=== PATIENT | female | born 1975 | race Two or more races ===

== ENCOUNTER 2019-03-02 07:30 | Day surgery (SDC) | payer OTHER | END 2019-03-02 16:20 | disposition home or self-care (01) | LOC: AMB-ENDOS 07:30 | DX: K64.1 Second degree hemorrhoids (principal); Z12.11 Encounter for screening for malignant neoplasm of colon ==

== ENCOUNTER 2025-05-27 06:00 | Day surgery (SDC) | payer OTHER ==
[2025-05-22 08:37] LABS: BASO % 1.0 % (0.1-1.2); EOS # 0.08 (0.04-0.54); EOS % 2.0 % (0.7-7.0); LYMPH # 1.50 (1.18-3.74); LYMPH % 36.9 % (19.3-53.1); MEAN PLATELET VOLUME 10.00 fl (9.4-12.4); MONO # 0.37 (0.24-0.82); MONO % 9.1 % (4.7-12.5); NEUT # 2.08 (1.56-6.13); NEUT % 51.0 % (34.0-71.1); RED CELL DISTRIBUTION WIDTH 13.5 % (11.6-14.4)
[2025-05-22 08:40] VITALS: BP 114/78
[2025-05-22 09:06] LABS: ALT/SGPT 127.0 U/L (12-78); AST/SGOT 72.0 U/L (15-37); BILIRUBIN TOTAL 0.63 mg/dL (0.3-1.2); BUN CREA RATIO 13.0 (7.0-25.0); CREATININE SERUM 0.77 mg/dL (0.55-1.02); GFR 79.03; GLOBULINA 3.7 G/DL (2.4-3.5); GLUCOSE FASTING 101.0 mg/dL (65-100); OSMOLALITY SERUM 286.0 MOSM/KG (275-295)
[2025-05-22 09:13] LABS: INR 1.03
[2025-05-22 11:34] LABS: URINE APPEARANCE Clear; URINE BILIRRUBIN Negative (NEGATIVE); URINE BLOOD Negative; URINE COLOR Yellow; URINE GLUCOSE Negative (NEGATIVE); URINE KETONE 15 (NEGATIVE); URINE LEUKOCYTE Small; URINE NITRATE Negative; URINE PROTEIN Negative (NEGATIVE); URINE UROBILINOGEN 0.2 E.U./dl
[2025-05-22 11:40] LABS: URINE EPITHELIAL CELLS 10.4 uL (0.0-38.8); URINE RBC 10.2 uL (0.0-20.8); URINE WBC 49.3 uL (0.0-23.2)
[2025-05-22 12:12] LABS: URINE BACTERIA > 9821.5 uL (0.0-1933); URINE CAST 0.00 uL (0.0-1.40)
[~2025-05-27] VITALS: Ht 157.5 cm; Wt 142.9 kg
[~2025-05-27 06:00] MED LIST: TOPROL XL25 M1 PO
[2025-05-27] MEDS ORDERED: CHLORHEXIDINE GLUCONATE 120 ML BOTTLE TOP ONE (07:45)
[2025-05-27] MEDS ORDERED: POVIDONE-IODINE 118 ML BOTT TOP ONE (07:45)
[2025-05-27] MEDS ORDERED: KETOROLAC TROMETHAMINE 60 MG VIAL IM ONE (08:15)
[2025-05-27] MEDS ORDERED: ONDANSETRON HCL 2 MG/ML VIAL IV ONE (08:15)
== END 2025-05-27 11:30 | disposition home or self-care (01) ==
LOC: CIR.AMB 06:00
PROVIDERS: ATTEND Obstetrics & Gynecology
DX: N84.0 Polyp of corpus uteri (principal); N95.0 Postmenopausal bleeding; Z88.2 Allergy status to sulfonamides

== ENCOUNTER 2025-06-17 07:23 | Inpatient (IN) | payer OTHER ==
[2025-06-12 09:00] VITALS: BP 124/86
[2025-06-12 09:07] LABS: BASO % 0.8 % (0.1-1.2); EOS # 0.10 (0.04-0.54); EOS % 2.1 % (0.7-7.0); LYMPH # 1.38 (1.18-3.74); LYMPH % 28.8 % (19.3-53.1); MEAN PLATELET VOLUME 10.00 fl (9.4-12.4); MONO # 0.40 (0.24-0.82); MONO % 8.4 % (4.7-12.5); NEUT # 2.86 (1.56-6.13); NEUT % 59.7 % (34.0-71.1); RED CELL DISTRIBUTION WIDTH 13.6 % (11.6-14.4)
[2025-06-12 09:28] LABS: URINE APPEARANCE Clear; URINE BILIRRUBIN Negative (NEGATIVE); URINE BLOOD Negative; URINE COLOR Yellow; URINE GLUCOSE Negative (NEGATIVE); URINE KETONE Negative (NEGATIVE); URINE LEUKOCYTE Negative; URINE NITRATE Negative; URINE PROTEIN Negative (NEGATIVE); URINE UROBILINOGEN 0.2 E.U./dl
[2025-06-12 09:30] LABS: URINE BACTERIA 47.9 uL (0.0-1933); URINE EPITHELIAL CELLS 5.0 uL (0.0-38.8); URINE RBC 4.6 uL (0.0-20.8); URINE WBC 2.7 uL (0.0-23.2)
[2025-06-12 09:40] LABS: URINE CAST 0.00 uL (0.0-1.40)
[2025-06-12 09:46] LABS: INR 1.0
[2025-06-12 10:20] LABS: ALT/SGPT 134.0 U/L (12-78); AST/SGOT 82.0 U/L (15-37); BILIRUBIN TOTAL 0.69 mg/dL (0.3-1.2); BUN CREA RATIO 14.0 (7.0-25.0); CREATININE SERUM 0.69 mg/dL (0.55-1.02); GFR 89.69; GLOBULINA 3.3 G/DL (2.4-3.5); GLUCOSE FASTING 90.0 mg/dL (65-100); OSMOLALITY SERUM 280.0 MOSM/KG (275-295)
[~2025-06-17] VITALS: Ht 99.1 cm; Wt 142.9 kg
[2025-06-17] MEDS ORDERED: POVIDONE-IODINE 118 ML BOTT TOP ONE (10:15)
[2025-06-17] MEDS ORDERED: CEFOXITIN SODIUM 2,000 MG VIAL IV ONE (10:15)
[2025-06-17] MEDS ORDERED: PROMETHAZINE HCL 25 MG/ML AMPUL IV SCH (12:38)
[2025-06-17] MEDS ORDERED: MORPHINE SULFATE 4 MG/ML VIAL IV SCH (12:41)
[2025-06-17] MEDS ORDERED: MORPHINE SULFATE 4 MG/ML VIAL IV ONE (13:25)
[2025-06-17 15:55] LABS: BASO % 0.2 % (0.1-1.2); EOS # 0.00 (0.04-0.54); EOS % 0.0 % (0.7-7.0); LYMPH # 0.87 (1.18-3.74); LYMPH % 7.6 % (19.3-53.1); MEAN PLATELET VOLUME 9.30 fl (9.4-12.4); MONO # 0.68 (0.24-0.82); MONO % 6.0 % (4.7-12.5); NEUT # 9.80 (1.56-6.13); NEUT % 85.9 % (34.0-71.1); RED CELL DISTRIBUTION WIDTH 14.0 % (11.6-14.4)
[2025-06-17 18:13] VITALS: BP 150/70; O2SAT 98
[2025-06-18] VITALS: BP 157/75
[2025-06-18] MEDS ORDERED: SIMETHICONE 125 MG CAPSULE PO SCH (05:00)
[2025-06-18] MEDS ORDERED: GABAPENTIN 600 MG TABLET PO SCH (05:00)
[2025-06-18 06:00] VITALS: BP 156/72
[2025-06-18] MEDS ORDERED: CEFOXITIN SODIUM 2,000 MG VIAL IV STA (06:37)
[2025-06-18 08:03] VITALS: BP 118/74
[2025-06-18] MEDS ORDERED: METOPROLOL SUCCINATE 25 MG TAB.SR.24H PO SCH (09:00)
[2025-06-18] MEDS ORDERED: AMOXICILLIN/POTASSIUM CLAV 875-125 TABLET PO SCH (09:00)
[2025-06-18 16:14] VITALS: BP 140/70
[2025-06-18 20:49] VITALS: BP 150/70
[2025-06-19 01:06] VITALS: BP 113/68
[2025-06-19] MEDS ORDERED: TOPROL XL25 M1 PO (06:50)
[2025-06-19] MEDS ORDERED: AMOX-CLAV 875-1 EACH PO (06:50)
[2025-06-19] MEDS ORDERED: NEURONTIN600 MG PO (06:50)
[2025-06-19] MEDS ORDERED: IBUPROFEN800 MG PO (06:51)
[2025-06-19] MEDS ORDERED: SIMETHICONE125 M1 PO (06:51)
[2025-06-19 08:10] VITALS: BP 124/74
== END 2025-06-19 10:06 | disposition home or self-care (01) | DRG 743 ==
LOC: CIR.AMB 07:23 → OB/GYN 14:08
PROVIDERS: ADMIT Obstetrics & Gynecology; ATTEND Obstetrics & Gynecology
PROC: 0UT7FZZ Resection of Bilateral Fallopian Tubes, Via Natural or Artificial Opening With Percutaneous Endoscopic Assistance (ICD-10-PCS; 2025-06-17)
PROC: 0UT2FZZ Resection of Bilateral Ovaries, Via Natural or Artificial Opening With Percutaneous Endoscopic Assistance (ICD-10-PCS; 2025-06-17)
PROC: 0UT9FZZ Resection of Uterus, Via Natural or Artificial Opening With Percutaneous Endoscopic Assistance (ICD-10-PCS; principal; 2025-06-17 14:00)
DX: D25.1 Intramural leiomyoma of uterus (principal); D25.0 Submucous leiomyoma of uterus; N84.0 Polyp of corpus uteri

== ENCOUNTER 2025-06-27 11:39 | Emergency (ER) | payer OTHER ==
[~2025-06-27] VITALS: Ht 157.5 cm; Wt 140.6 kg
[~2025-06-27 11:39] MED LIST changes: +AMOX-CLAV 875-1 EACH PO; +IBUPROFEN800 MG PO; +NEURONTIN600 MG PO; +SIMETHICONE125 M1 PO
[2025-06-27] MEDS ORDERED: FAMOTIDINE/PF 20 MG in 0.9 % SODIUM CHLORIDE 8 ML IV PUSH ONE (13:30)
[2025-06-27] MEDS ORDERED: ACETAMINOPHEN 500 MG GEL..CAP PO ONE ×2 (13:30→14:00)
[2025-06-27] MEDS ORDERED: RINGERS SOLUTION,LACTATED 1,000 ML IV SCH (13:30)
[2025-06-27] MEDS ORDERED: FAMOTIDINE/PF 20 MG/2 ML VIAL ONE (14:00)
[2025-06-27 14:28] LABS: URINE APPEARANCE Clear; URINE BILIRRUBIN Negative (NEGATIVE); URINE BLOOD Moderate; URINE COLOR Yellow; URINE GLUCOSE Negative (NEGATIVE); URINE KETONE Negative (NEGATIVE); URINE LEUKOCYTE Small; URINE NITRATE Negative; URINE PROTEIN 30 (NEGATIVE); URINE UROBILINOGEN 0.2 E.U./dl
[2025-06-27 14:29] LABS: URINE BACTERIA 266.3 uL (0.0-1933); URINE EPITHELIAL CELLS 13.6 uL (0.0-38.8); URINE RBC 246.6 uL (0.0-20.8); URINE WBC 266.2 uL (0.0-23.2)
[2025-06-27 14:31] LABS: URINE CAST 0.87 uL (0.0-1.40)
[2025-06-27 14:38] LABS: BASO % 0.5 % (0.1-1.2); EOS # 0.38 (0.04-0.54); EOS % 4.7 % (0.7-7.0); LYMPH # 1.66 (1.18-3.74); LYMPH % 20.7 % (19.3-53.1); MEAN PLATELET VOLUME 9.20 fl (9.4-12.4); MONO # 0.61 (0.24-0.82); MONO % 7.6 % (4.7-12.5); NEUT # 5.31 (1.56-6.13); NEUT % 66.3 % (34.0-71.1); RED CELL DISTRIBUTION WIDTH 13.3 % (11.6-14.4)
[2025-06-27 14:42] LABS: INR 1.08
[2025-06-27 14:49] LABS: ALT/SGPT 103.0 U/L (12-78); AST/SGOT 84.0 U/L (15-37); BILIRUBIN TOTAL 0.42 mg/dL (0.3-1.2); BUN CREA RATIO 12.0 (7.0-25.0); CREATININE SERUM 0.93 mg/dL (0.55-1.02); GFR 63.56; GLOBULINA 4.5 G/DL (2.4-3.5); GLUCOSE FASTING 104.0 mg/dL (65-100); OSMOLALITY SERUM 287.0 MOSM/KG (275-295)
[2025-06-27] MEDS ORDERED: CEFTRIAXONE SODIUM 1,000 MG VIAL ONE (17:10)
[2025-06-27] MEDS ORDERED: CEFTRIAXONE SODIUM 2,000 MG VIAL IV ONE (17:15)
== END 2025-06-27 17:33 | disposition home or self-care (01) ==
LOC: ER 11:40
PROVIDERS: General Practice
DX: R10.84 Generalized abdominal pain (principal); K57.30 Diverticulosis of large intestine without perforation or abscess without bleeding; Z90.722 Acquired absence of ovaries, bilateral; I10 Essential (primary) hypertension; Z88.2 Allergy status to sulfonamides

== ENCOUNTER 2025-08-14 16:44 | Inpatient (IN) | payer OTHER ==
[~2025-08-14] VITALS: Ht 61 cm; Wt 133.8 kg
[2025-08-14 17:30] VITALS: BP 113/77
[2025-08-14] MEDS ORDERED: RINGERS SOLUTION,LACTATED 1,000 ML IV SCH (18:30)
[2025-08-14] MEDS ORDERED: FLUCONAZOLE IN NACL,ISO-OSM 200 MG/100 ML PIGGYBAG IV SCH (19:00)
[2025-08-14] MEDS ORDERED: CLOTRIMAZOLE/BETAMETHASONE DIP 15 GM TUBE TOP SCH (19:00)
[2025-08-14 19:40] LABS: URINE APPEARANCE Cloudy; URINE BILIRRUBIN Negative (NEGATIVE); URINE BLOOD Moderate; URINE COLOR Yellow; URINE GLUCOSE Negative (NEGATIVE); URINE KETONE Trace (NEGATIVE); URINE LEUKOCYTE Large; URINE NITRATE Positive; URINE PROTEIN 30 (NEGATIVE); URINE UROBILINOGEN 0.2 E.U./dl
[2025-08-14 19:44] LABS: URINE CAST 0.43 uL (0.0-1.40); URINE EPITHELIAL CELLS 1.3 uL (0.0-38.8); URINE RBC 97.8 uL (0.0-20.8); URINE WBC 721.7 uL (0.0-23.2)
[2025-08-14 20:04] LABS: INR 0.99
[2025-08-14 20:07] LABS: ALT/SGPT 81.0 U/L (12-78); AST/SGOT 55.0 U/L (15-37); BILIRUBIN TOTAL 0.32 mg/dL (0.3-1.2); BUN CREA RATIO 15.0 (7.0-25.0); CREATININE SERUM 0.91 mg/dL (0.55-1.02); GFR 65.17; GLOBULINA 3.6 G/DL (2.4-3.5); GLUCOSE FASTING 103.0 mg/dL (65-100); OSMOLALITY SERUM 288.0 MOSM/KG (275-295)
[2025-08-14] MEDS ORDERED: AZTREONAM 2,000 MG VIAL IV SCH (21:00)
[2025-08-14] MEDS ORDERED: CEFTAZIDIME/AVIBACTAM 2.5 GM VIAL IV SCH (21:00)
[2025-08-15 01:42] VITALS: BP 123/78
[2025-08-15] MEDS ORDERED: AZTREONAM 2,000 MG VIAL IV SCH ×2 (04:00→12:00)
[2025-08-15 09:00] VITALS: BP 143/80
[2025-08-15] MEDS ORDERED: METOPROLOL SUCCINATE 25 MG TAB.SR.24H PO SCH (09:00)
[2025-08-15] MEDS ORDERED: FAMOTIDINE/PF 20 MG/2 ML VIAL IV SCH (09:00)
[2025-08-15 11:53] LABS: BASO % 0.6 % (0.1-1.2); EOS # 0.18 (0.04-0.54); EOS % 3.6 % (0.7-7.0); LYMPH # 1.38 (1.18-3.74); LYMPH % 27.3 % (19.3-53.1); MEAN PLATELET VOLUME 9.50 fl (9.4-12.4); MONO # 0.48 (0.24-0.82); MONO % 9.5 % (4.7-12.5); NEUT # 2.97 (1.56-6.13); NEUT % 58.8 % (34.0-71.1); RED CELL DISTRIBUTION WIDTH 14.1 % (11.6-14.4)
[2025-08-15] MEDS ORDERED: MEROPENEM/VABORBACTAM 2 GM VIAL IV SCH (13:00)
[2025-08-15 16:12] VITALS: BP 112/72
[2025-08-15] MEDS ORDERED: LACTOBACILLUS ACIDOPHILUS 1 CAP CAP PO SCH (17:00)
[2025-08-16] VITALS: BP 150/70
[2025-08-16 08:00] VITALS: BP 122/73
[2025-08-16] MEDS ORDERED: CHLORHEXIDINE GLUCONATE 120 ML BOTTLE TOP SCH (09:00)
[2025-08-16] MEDS ORDERED: AZTREONAM/AVIBACTAM SODIUM 2 GM VIAL IV STA (09:36)
[2025-08-16] MEDS ORDERED: FLUCONAZOLE 200 MG TABLET PO SCH (17:00)
[2025-08-16 17:35] VITALS: BP 137/76
[2025-08-16] MEDS ORDERED: AZTREONAM/AVIBACTAM SODIUM 2 GM VIAL IV SCH (18:00)
[2025-08-17 00:28] VITALS: BP 130/77
[2025-08-17 09:13] VITALS: BP 132/77
[2025-08-17 17:00] VITALS: BP 144/77
[2025-08-18] VITALS: BP 132/75
[2025-08-18 09:10] VITALS: BP 128/80
[2025-08-18 16:00] VITALS: BP 114/69
[2025-08-19 01:09] VITALS: BP 114/74
[2025-08-19 08:30] VITALS: BP 136/85
[2025-08-19] MEDS ORDERED: AZTREONAM/AVIBACTAM SODIUM 2 GM VIAL IV SCH (12:00)
[2025-08-19 13:46] LABS: URINE APPEARANCE Clear; URINE BILIRRUBIN Negative (NEGATIVE); URINE BLOOD Moderate; URINE COLOR Yellow; URINE GLUCOSE Negative (NEGATIVE); URINE KETONE Negative (NEGATIVE); URINE LEUKOCYTE Large; URINE NITRATE Negative; URINE PROTEIN Negative (NEGATIVE); URINE UROBILINOGEN 0.2 E.U./dl
[2025-08-19 13:54] LABS: URINE BACTERIA 183.5 uL (0.0-1933); URINE CAST 0.00 uL (0.0-1.40); URINE EPITHELIAL CELLS 7.0 uL (0.0-38.8); URINE RBC 14.8 uL (0.0-20.8); URINE WBC 47.2 uL (0.0-23.2)
[2025-08-19 16:28] VITALS: BP 144/68
[2025-08-20 00:09] VITALS: BP 133/77
[2025-08-20 07:32] VITALS: BP 118/77
[2025-08-20] MEDS ORDERED: PATIENTS OWN MEDICATION (MEDICAMENTO EN PISO NEVERA) IV SCH (12:00)
[2025-08-20 22:16] VITALS: BP 116/73
[2025-08-21 01:26] VITALS: BP 110/70
[2025-08-21 08:00] VITALS: BP 100/61
[2025-08-21 16:41] VITALS: BP 117/72
[2025-08-22] VITALS: BP 117/73
[2025-08-22 08:00] VITALS: BP 113/77
[2025-08-22] MEDS ORDERED: CLOTRIMAZOLE/BETAMETHASONE DIP 15 GM TUBE TOP SCH (09:00)
[2025-08-22 17:05] VITALS: BP 110/58
[2025-08-23] VITALS: BP 101/66
[2025-08-23 06:51] LABS: BASO % 0.7 % (0.1-1.2); EOS # 0.28 (0.04-0.54); EOS % 6.9 % (0.7-7.0); LYMPH # 0.75 (1.18-3.74); LYMPH % 18.4 % (19.3-53.1); MEAN PLATELET VOLUME 9.80 fl (9.4-12.4); MONO # 0.46 (0.24-0.82); MONO % 11.3 % (4.7-12.5); NEUT # 2.55 (1.56-6.13); NEUT % 62.5 % (34.0-71.1); RED CELL DISTRIBUTION WIDTH 13.8 % (11.6-14.4)
[2025-08-23 07:41] LABS: ERYTHROCYTE SEDIMENTATION RATE 118 mm/hr (0-30)
[2025-08-23 07:51] LABS: ALT/SGPT 144.0 U/L (12-78); AST/SGOT 102.0 U/L (15-37); BILIRUBIN TOTAL 0.59 mg/dL (0.3-1.2); BUN CREA RATIO 21.0 (7.0-25.0); CREATININE SERUM 0.57 mg/dL (0.55-1.02); GFR 111.82; GLOBULINA 3.7 G/DL (2.4-3.5); GLUCOSE FASTING 88.0 mg/dL (65-100); OSMOLALITY SERUM 280.0 MOSM/KG (275-295)
[2025-08-23 08:51] VITALS: BP 114/78
[2025-08-23 16:50] VITALS: BP 116/76
[2025-08-24 00:49] VITALS: BP 113/68
[2025-08-24 09:55] VITALS: BP 116/74
[2025-08-24 16:00] VITALS: BP 114/75
[2025-08-25] VITALS: BP 101/76
[2025-08-25 09:53] VITALS: BP 117/70
[2025-08-25 16:09] VITALS: BP 119/77
[2025-08-26 01:15] VITALS: BP 115/76
[2025-08-26 09:48] VITALS: BP 108/68; BP 113/75
[2025-08-26 16:04] VITALS: BP 134/79
[2025-08-27 00:52] VITALS: BP 118/78
[2025-08-27 08:10] VITALS: BP 130/75
[2025-08-27 15:11] VITALS: BP 117/72
[2025-08-28 00:37] VITALS: BP 116/69
[2025-08-28 08:21] VITALS: BP 115/76
== END 2025-08-28 13:14 | disposition home or self-care (01) | DRG 690 ==
LOC: MEDI 16:44 → OB/GYN 17:04
PROVIDERS: Internal Medicine Infectious Disease; ADMIT Obstetrics & Gynecology; ATTEND Obstetrics & Gynecology
PROC: 8E0ZXY6 Isolation (ICD-10-PCS; principal; 2025-08-15)
DX: N39.0 Urinary tract infection, site not specified (principal); N32.2 Vesical fistula, not elsewhere classified; N12 Tubulo-interstitial nephritis, not specified as acute or chronic; Z88.2 Allergy status to sulfonamides; Z88.1 Allergy status to other antibiotic agents; I10 Essential (primary) hypertension; Z90.710 Acquired absence of both cervix and uterus; B95.2 Enterococcus as the cause of diseases classified elsewhere; B96.1 Klebsiella pneumoniae [K. pneumoniae] as the cause of diseases classified elsewhere